=== PATIENT | male | born 1975 ===

== ENCOUNTER 2018-03-05 10:08 | Emergency (ER) | payer BC ==
[2018-03-05] MEDS ORDERED: predniSONE TAB* 20 MG PO ONE (10:50)
--- NOTE | 2018-03-05 10:53 | UC ---
General HPI - HPI Summary HPI Summary: This is a 42-year-old male with approximately a 4 day history of left sided facial weakness. The patient denies any left ear pain. He has no headache. He has no left arm or leg weakness. The patient has a history of rheumatoid arthritis as well as a seizure disorder. He states that about 2 weeks ago he had what he thought was an insect bite on his abdomen. The center of the bite was a bright red with a ring of pink around it. He said it looked quite inflamed. He recalls no tick bite. While he had this rash he did experience some joint pains. The rash resolved a few days ago. - History of Current Complaint Chief Complaint: UCGeneralIllness Stated Complaint: FACIAL COMPLAINT Time Seen by Provider: 03/05/18 10:30 Hx Obtained From: Patient Onset/Duration: Gradual Onset, Lasting Days Onset Severity: Mild Current Severity: Moderate Pain Intensity: 0 PMH/Surg Hx/FS Hx/Imm Hx Previously Healthy: Yes - RA Neurological History: Seizures - Surgical History Surgical History: Yes Surgery Procedure, Year, and Place: TOOTH EXTRACTION - Family History Known Family History: Positive: Cardiac Disease, Hypertension, Diabetes, Other - strong FHx of auto immune problems - Social History Alcohol Use: Weekly Alcohol Amount: 10-15 DRINKS PER WEEK Substance Use Type: None Smoking Status (MU): Heavy Every Day Tobacco Smoker Amount Used/How Often: 10-20 DAY Review of Systems Constitutional: Negative Skin: Negative Eyes: Negative ENT: Negative Respiratory: Negative Cardiovascular: Negative Gastrointestinal: Negative Genitourinary: Negative Motor: Negative Neurovascular: Negative Musculoskeletal: Negative Neurological: Weakness - left facial Psychological: Negative Is Patient Immunocompromised?: No All Other Systems Reviewed And Are Negative: Yes Physical Exam Triage Information Reviewed: Yes Appearance: Well-Appearing, No Pain Distress, Well-Nourished Vital Signs: Initial Vital Signs Temp 98.9 F 03/05/18 10:22 Pulse 82 03/05/18 10:22 Resp 18 03/05/18 10:22 BP 130/91 03/05/18 10:22 Pulse Ox 98 03/05/18 10:22 Vital Signs Reviewed: Yes Eye Exam: Normal Eyes: Positive: Conjunctiva Clear ENT: Positive: Hearing grossly normal. 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 probable lyme disease Discharge - Sign-Out/Discharge Documenting (check all that apply): Discharge/Admit/Transfer - Discharge Plan Condition: Stable Disposition: HOME Prescriptions: DOXYcycline CAP(*) [DOXYcycline 100MG CAP(*)] 100 mg PO BID #28 cap predniSONE TAB* [Deltasone 10 MG TAB*] 10 - 60 mg PO DAILY #43 tab Patient Education Materials: Lyme Disease (ED), Snow Palsy (ED) Referrals: Tavares DHILLON,Dl Giudo [Medical Doctor] - 2 Weeks Juan De La Vega MD [Medical Doctor] - As Soon As Possible Additional Instructions: we will treat you for possible lyme disease Tape your left eye shut at night use artificial tears recheck for eye pain - Billing Disposition and Condition Condition: STABLE Disposition: Home
--- NOTE | 2018-03-07 10:15 | UC ---
- Progress Note Progress Note: Pt with + Lyme awaiting WB Pt was started on Doxy Ljj 03/07/2018 Discharge - Sign-Out/Discharge Documenting (check all that apply): Post-Discharge Follow Up - Discharge Plan Condition: Stable Disposition: HOME Prescriptions: DOXYcycline CAP(*) [DOXYcycline 100MG CAP(*)] 100 mg PO BID #28 cap predniSONE TAB* [Deltasone 10 MG TAB*] 10 - 60 mg PO DAILY #43 tab Patient Education Materials: Lyme Disease (ED), Snow Palsy (ED) Referrals: Tavares DHILLON,Dl Guido [Medical Doctor] - 2 Weeks Juan De La Vega MD [Medical Doctor] - As Soon As Possible Additional Instructions: we will treat you for possible lyme disease Tape your left eye shut at night use artificial tears recheck for eye pain - Billing Disposition and Condition Condition: STABLE Disposition: Home
== END 2018-03-05 11:15 | disposition home or self-care (01) ==
LOC: UCEAST 10:08
DX: G51.0 Bell's palsy (principal); F17.210 Nicotine dependence, cigarettes, uncomplicated; Z86.69 Personal history of other diseases of the nervous system and sense organs
CPT/HCPCS: 86617; 86618; 99202; G0463; J7512